=== PATIENT | male | born 1965 | race Caucasian/White ===

== ENCOUNTER 2020-09-20 20:42 | Emergency (ER) | payer MEDICARE ==
[~2020-09-20] VITALS: Ht 180.3 cm; Wt 65.8 kg
[~2020-09-20 20:42] MED LIST: AZITHROMYCIN 2250 MG PO; BENADRYL59 ML; BUTORPHANOLNS2; CLONAZEPAM 1 MG1 M1; EPIPEN0.3 MG/0.3; FIORICET 50-301 EACH; FLAGYL500 M1 PO; HYOSCYAMINE0.375 M2; LOPRESSOR25; LORTAB 7.5/5001 TA3; NITROGLYCERIN0.4 MG SL; OXYCODONE HCL5 M1; PEPCID20 MG PO; REGLAN; ZOFRAN ODT4 MG PO; [UNRECOGNIZED DRUG - OTHER]; [UNRECOGNIZED DRUG - OTHER]
[2020-09-20] MEDS ORDERED: KAPSPARGO SPRIN50 MG PO (20:59)
[2020-09-20] MEDS ORDERED: MORPHINE S20 MG/5 ML PO (20:59)
[2020-09-20] MEDS ORDERED: VISTARIL50 MG PO (21:00)
[2020-09-20] MEDS ORDERED: CEFUROXIME500 MG PO (21:00)
[2020-09-20] MEDS ORDERED: HYDROCODONE-AP1 EACH PO (22:14)
[2020-09-20 22:28] VITALS: BP 131/54
== END 2020-09-20 22:29 | disposition home or self-care (01) ==
LOC: M.ERS 20:42
DX: C32.9 Malignant neoplasm of larynx, unspecified (principal); Z76.0 Encounter for issue of repeat prescription; K58.9 Irritable bowel syndrome, unspecified; M19.90 Unspecified osteoarthritis, unspecified site; Z88.0 Allergy status to penicillin; Z88.2 Allergy status to sulfonamides; Z88.7 Allergy status to serum and vaccine; Z88.8 Allergy status to other drugs, medicaments and biological substances; Z91.013 Allergy to seafood